=== PATIENT | female | born 1980 | race Caucasian/White ===

== ENCOUNTER → 2017-04-15 | Outpatient (CLI) | payer OTHER ==
--- NOTE | 2017-04-15 21:18 | CT ---
EXAMINATION TYPE: CT abdomen pelvis w con DATE OF EXAM: 04/15/2017 COMPARISON: 10/09/2015 HISTORY: 36-year-old female with low abdominal pain x 2 weeks. TECHNIQUE: Contiguous axial scanning of the abdomen and pelvis following administration of 100 ml Omn ipaque 300 IV contrast. Delayed images through the kidneys and coronal/sagittal reconstructions perf ormed. CT DLP: 1819.00 mGycm Automated exposure control for dose reduction was used. FINDINGS: Heart is normal size without pericardial effusion. Lung bases clear without pleural effusion. Marked hepatomegaly measuring 25 cm craniocaudal with diffuse low-attenuation. Portal venous system i s patent. No biliary ductal dilatation. Gallbladder, adrenal glands, slightly malrotated right kidney, left kidney, and pancreas show no darline s abnormality. Spleen is mildly enlarged at 14.1 cm. No dilated small bowel, free fluid, or free air. A few scattered prominent mesenteric lymph nodes jackie suring up to 1 cm in the mid abdomen are unchanged. Normal appendix. Mild to moderate stool without pericolonic inflammatory change. Bladder is partially urine distended. Uterus and both ovaries are visualized. No abnormal fluid colle ction in the pelvis or pelvic lymphadenopathy seen. There is prior mid abdominal anterior mesh repair. In the right paramedian mid abdomen, there is a ti ny abdominal wall defect measuring 1.2 cm wide as seen previously. There is herniating omental fat th is time estimated to measure 8.2 cm wide, axial image 47. Just below this level, there may be additional anterior abdominal wall mesh repair but there is exten sive soft tissue and some central low density thickening along the anterior subcutaneous fat with dimitrios rounding fat stranding in the subcutaneous fat. There is abnormal thickening measures 5.0 cm wide and 10.7 cm craniocaudal. Previously, this thickening was also present but seem to demonstrate greater d egree of internal fluid density. There is residual mild circumferential wall thickening of the distal 5.5 cm of the terminal ileum. Bones: Redemonstrated bilateral L5 pars defects with grade 1 L5-S1 anterolisthesis and associated deg enerative disc disease at this level. No osseous destructive process. IMPRESSION: 1. PRIOR ANTERIOR ABDOMINAL WALL MESH REPAIR. IN THE RIGHT PARAMEDIAN ANTERIOR MID ABDOMEN, THERE IS REDEMONSTRATION OF A TINY 1.2 CM ABDOMINAL WALL DEFECT. THE HERNIATING OMENTAL FAT SEEMS TO MEASURE 8 .2 CM WIDE, AXIAL IMAGE 47. RELATIVELY SIMILAR TO THE PRIOR EXAM IN RETROSPECT. 2. EXTENSIVE INFLAMMATORY SOFT TISSUE THICKENING CENTERED ALONG THE SUBCUTANEOUS FAT OF THE MID TO LO WER ANTERIOR ABDOMEN SEEN PREVIOUSLY. THERE IS LESS CENTRAL FLUID DENSITY BUT CONTINUED SURROUNDIN G INFLAMMATION. COMBINATION OF CHRONIC SCAR TISSUE AND CHRONIC POSTOPERATIVE HEMATOMA/SEROMA IS POSSI BLE. SUPERIMPOSED INFECTION NOT EXCLUDED GIVEN THE DEGREE OF SURROUNDING FAT STRANDING. 3. REDEMONSTRATED MILD CIRCUMFERENTIAL WALL THICKENING OF THE DISTAL 5.5 CM OF THE TERMINAL ILEUM. CO RRELATE TO EXCLUDE RECURRENT TERMINAL ILEITIS. 4. MARKED HEPATOMEGALY AND HEPATIC STEATOSIS. NEW MILD SPLENOMEGALY (14.1 CM). CLINICALLY CORRELATE. 5. BILATERAL L5 PARS DEFECTS WITH GRADE 1 L5-S1 ANTEROLISTHESIS AND ASSOCIATED DEGENERATIVE DISC DISE ASE.
== END | disposition home or self-care (01) ==
LOC: RADCTMAIN 17:19
PROVIDERS: ATTEND Surgery
DX: K46.9 Unspecified abdominal hernia without obstruction or gangrene (principal); K76.0 Fatty (change of) liver, not elsewhere classified; M79.89 Other specified soft tissue disorders; K31.89 Other diseases of stomach and duodenum; R16.0 Hepatomegaly, not elsewhere classified; R16.1 Splenomegaly, not elsewhere classified
CPT/HCPCS: 74177; Q9967

== ENCOUNTER 2017-09-21 00:57 | Emergency (ER) | payer OTHER ==
--- NOTE | 2017-09-21 01:47 | ED ---
Abdominal Pain HPI - General Chief Complaint: Abdominal Pain Stated Complaint: HYPERTENSION Time Seen by Provider: 09/21/17 01:09 Source: EMS, RN notes reviewed, old records reviewed Mode of arrival: EMS Limitations: altered mental status - History of Present Illness Initial Comments: Patient is a 37-year-old female with history of complaining of abdominal wall irritation and pain. She reports that she afternoon. It's near her previous incision site for her hernia. The area of redness is where her jeans rub. Patient denies any fever chills, nausea or vomiting, teachers about habits. EMS reports that she is now staying home aloneAnd patient has been scared. Patient is legal guardian is your mother, who is contacted and allowed her beat to be treated. EMS also noted that her blood pressure seem to be somewhat elevated. Patient at this time denies any nausea or vomiting, changes in bowel habits. She somewhat of a poor historian. - Related Data Previous Rx's Medication Instructions Recorded Ondansetron Odt [Zofran ODT] 4 mg PO Q8HR PRN #10 tab 08/29/17 Cephalexin [Keflex] 500 mg PO Q8HR #21 cap 09/21/17 Mupirocin 2% Oint [Bactroban 2% 1 applic TOPICAL TID #1 tube 09/21/17 Oint] Nystatin 100,000 Unit/gm Powd 1 applic TOPICAL BID #1 bottle 09/21/17 [Mycostatin Powder] Allergies Allergy/AdvReac Type Severity Reaction Status Date / Time No Known Allergies Allergy Verified 08/29/17 04:55 Review of Systems ROS Statement: Those systems with pertinent positive or pertinent negative responses have been documented in the HPI. ROS Other: All systems not noted in ROS Statement are negative. Past Medical History Past Medical History: No Reported History History of Any Multi-Drug Resistant Organisms: None Reported Past Surgical History: No Surgical Hx Reported Past Psychological History: No Psychological Hx Reported Smoking Status: Never smoker Past Alcohol Use History: None Reported Past Drug Use History: None Reported General Exam - General Exam Comments Initial Comments: 37 year old female. Pt has autism. No distress Limitations: altered mental status General appearance: alert, in no apparent distress Head exam: Present: atraumatic, normocephalic, normal inspection Eye exam: Present: normal appearance, PERRL, EOMI. Absent: scleral icterus, conjunctival injection, periorbital swelling ENT exam: Present: normal exam, mucous membranes moist Neck exam: Present: normal inspection. Absent: tenderness, meningismus, lymphadenopathy Respiratory exam: Present: normal lung sounds bilaterally. Absent: respiratory distress, wheezes, rales, rhonchi, stridor Cardiovascular Exam: Present: regular rate, normal rhythm, normal heart sounds. Absent: systolic murmur, diastolic murmur, rubs, gallop, clicks GI/Abdominal exam: Present: soft, normal bowel sounds, other (area of intertigo under panus. Patient has 3cm area of redness below umbilicus from where her pants rub. 3cm area of cellulitis. ). Absent: distended, tenderness, guarding, rebound, rigid Extremities exam: Present: normal inspection, full ROM, normal capillary refill. Absent: tenderness, pedal edema, joint swelling, calf tenderness Back exam: Present: normal inspection Neurological exam: Present: alert, oriented X3, CN II-XII intact Course Vital Signs 09/21/17 09/21/17 01:01 02:12 Temperature 97.7 F 97.9 F Pulse Rate 92 89 Respiratory 20 18 Rate Blood Pressure 167/93 156/90 O2 Sat by Pulse 96 95 Oximetry Medical Decision Making - Medical Decision Making Can you do [id number]-[id number] female presents with abdominal wall irritation. She has history of autism. Patient has a 3 cm area of cellulitis of her abdomen wear her jeans rub. She also has intertrigo underneath your panties. Discussed all teletypewriter installer for nystatin powder to put underneath her penis. Also some bacitracin cream over the area of redness under umbilicus. She's no tenderness , bowel sounds normal. I will also start the patient on Keflex for the Rich cellulitis at this time. Discussed follow up with her primary care provider. Discussed wearing loose clothing which is not rub over the area. Patient agrees to treatment plan will comply. - Lab Data Lab Results 09/21/17 Range/Units 01:29 Urine Color Yellow Urine Appearance Clear (Clear) Urine pH 5.5 (5.0-8.0) Ur Specific [place] 1.022 (1.001-1.035) Urine Protein Negative (Negative) Urine Glucose (UA) Negative (Negative) Urine Ketones Negative (Negative) Urine Blood Negative (Negative) Urine Nitrite Negative (Negative) Urine Bilirubin Negative (Negative) Urine Urobilinogen <2.0 (<2.0) mg/dL Ur Leukocyte Esterase Trace H (Negative) Urine RBC 1 (0-5) /hpf Urine WBC 4 (0-5) /hpf Ur Squamous Epith Cells 4 (0-4) /hpf Urine Bacteria Rare H (None) /hpf Urine Mucus Few H (None) /hpf Disposition Clinical Impression: Intertrigo, Abdominal wall cellulitis Disposition: ADMITTED IP TO THIS HOSP Condition: Good Instructions: Cellulitis (ED), Skin Yeast Infection (ED) Additional Instructions: Patient advised to apply the powder between skin folds as well as apply the cream over the area of redness on her abdomen. Patient should take the antibiotic as prescribed. Return to emergency department if any alarming signs or symptoms occur. Follow-up with your primary care provider. Prescriptions: Cephalexin [Keflex] 500 mg PO Q8HR #21 cap Mupirocin 2% Oint [Bactroban 2% Oint] 1 applic TOPICAL TID #1 tube Nystatin 100,000 Unit/gm Powd [Mycostatin Powder] 1 applic TOPICAL BID #1 bottle Referrals: Ania Irizarry MD [Primary Care Provider] - 1-2 days Time of Disposition: 01:47
[2017-09-21 01:57] LABS: Appearance,Urine Clear (Clear); Bacteria,Urine Rare /hpf; Bilirubin,Urine Negative (Negative); Glucose,Urine (UA) Negative (Negative); Ketones,Urine Negative (Negative); Leukocyte Esterase,Urine Trace (Negative); Mucus,Urine Few /hpf; Nitrite,Urine Negative (Negative); PH, Urine 5.5 (5.0-8.0); Particle Count 7444; Protein,Urine Negative (Negative); RBC,Urine 1 /hpf (0-5); Specific Gravity,Urine 1.022 (1.001-1.035); Squamous Epithelial Cell,Urine 4 /hpf (0-4); UA Billing (MACRO vs. MICRO) MICRO; Urobilinogen,Urine <2.0 mg/dL (<2.0); WBC,Urine 4 /hpf (0-5)
[2017-09-21 02:13] VITALS: BP 156/90; PULSE 89; RESP 18; TEMP 97.9
== END 2017-09-21 02:14 | disposition other institution (70) ==
LOC: EC 00:57
DX: L03.311 Cellulitis of abdominal wall (principal); L30.4 Erythema intertrigo; R03.0 Elevated blood-pressure reading, without diagnosis of hypertension
CPT/HCPCS: 81001; 99285

== ENCOUNTER → 2017-10-29 | Outpatient (CLI) | payer OTHER ==
--- NOTE | 2017-10-29 11:16 | CT ---
EXAMINATION TYPE: CT abdomen pelvis wo con DATE OF EXAM: 10/29/2017 COMPARISON: 04/15/2017 HISTORY: R10.33 Periumbilical pain SURGICAL HISTORY:Sx hx- Dbl. hernia, Appy, Uracal Cyst., Bladder, and bowel Examination of the solid and hollow viscera is limited given the lack of contrast. Limited unenhanced CT of the abdomen and pelvis. FINDINGS: LUNG BASES: No evidence for nodule. No evidence for infiltrate. LIVER/GB: Hepatomegaly. Underlying hepatic steatosis. The gallbladder is unremarkable. No space-occup zachary hepatic lesion. PANCREAS: No pancreatic mass identified. No inflammatory process seen. SPLEEN: No evidence for splenomegaly. No intrasplenic lesions seen. ADRENALS: No adrenal nodules identified. No evidence for thickening. KIDNEYS: No evidence for renal mass. No nephrolithiasis. No hydronephrosis. BOWEL: Image 69 of 1:15 demonstrates inflammatory change adjacent to the terminal ileum and adjacent small bowel. There appears to be an internal focus of air. Terminal ileum demonstrates a thickened wa ll. The findings are of uncertain etiology and could reflect small contained perforation. Entero-ente ral fistulas difficult to exclude. Consider repeat examination with GI contrast. No evidence for pneumoperitoneum or distinct intra-abdominal abscess. Lymph nodes: No evidence for ad enopathy greater than 1 cm. Abdominal aorta: Atheromatous changes seen. No evidence for aneurysm. Genital organs: No significant abnormality. Osseous structures: Severe degenerative disc disease L5-S1 with grade 1 anterolisthesis and bilateral pars defect. Other: Previous anterior abdominal wall hernia repair. Again noted is right paramedian anterior wall defect measuring 1.5 cm versus 1.2 cm. There is herniated omental fat which measures 9.6 x 3.5 cm and is slightly increased in size relative to prior study. Just caudal to this herniated omental fat the re is thickening of the anterior abdominal wall at its midline into the right of midline with suspect ed postoperative granulation tissue and postoperative seroma/hematoma. Overall measurement is approxi mately 11.7 by 7.8 x 2.3 cm. Size has increased relative to the prior measurement of 10.7 x 5.0 cm. IMPRESSION: 1. Right lower quadrant inflammatory phlegmon adjacent to thickened terminal ileum and several cluste red loops of small bowel. As noted within this area of phlegmon there appears to be a focus of air. T he findings could reflect a contained perforation. Entero-enteral fistula is not excluded. Strict cli nical correlation is advised as well as correlation with repeat examination with GI contrast. 2. Anterior abdominal wall hernia which demonstrates interval enlargement and contains omental fat. 3. Postoperative granulation tissue and seroma anterior abdominal wall hernia repair site. 4 hepatomegaly with hepatic steatosis.
== END | disposition home or self-care (01) ==
LOC: RADCTMAIN 09:36
PROVIDERS: ATTEND Surgery
DX: K65.1 Peritoneal abscess (principal); K43.9 Ventral hernia without obstruction or gangrene; K76.0 Fatty (change of) liver, not elsewhere classified; R16.0 Hepatomegaly, not elsewhere classified; K91.872 Postprocedural seroma of a digestive system organ or structure following a digestive system procedure; Z98.890 Other specified postprocedural states
CPT/HCPCS: 74176

== ENCOUNTER → 2021-06-03 | Outpatient (CLI) | payer MEDICARE, OTHER ==
--- NOTE | 2021-06-03 16:26 | CT ---
EXAMINATION TYPE: CT abdomen pelvis wo con DATE OF EXAM: 06/03/2021 HISTORY: Periumbilical pain, history of incisional hernia. CT DLP: 347.6 mGycm. Automated Exposure Control for Dose Reduction was Utilized. TECHNIQUE: CT scan of the abdomen and pelvis is performed without oral or IV contrast. COMPARISON: CT abdomen and pelvis October 29, 2017 and older CTs FINDINGS: Within the limitations of a non-contrast study, the following observations are made. LUNG BASES: No significant abnormality is appreciated. LIVER/GB: Improvement density to the liver. PANCREAS: No significant abnormality is seen. SPLEEN: No significant abnormality is seen. ADRENALS: No significant abnormality is seen. KIDNEYS: No renal stones or hydronephrosis seen bilaterally. BOWEL: Suboptimal evaluation without enteric contrast. No suspicious small or large bowel dilatation. A few sigmoid colonic diverticula are present without CT evidence for acute diverticulitis. GENITAL ORGANS: Lnhyq-[id number]-[id number] amount of free fluid in pelvic cul-de-sac axial image 71. LYMPH NODES: No greater than 1cm abdominal or pelvic lymph nodes are appreciated. OSSEOUS STRUCTURES: Bilateral pars defect L5 level. Grade 1 anterolisthesis L5 on S1. Moderate disc s pace narrowing at this level. OTHER: Vertical scarring along the midline of the anterior abdominal wall is redemonstrated. Small fo lance areas of fluid density reference axial image 53 are identified, suspected postsurgical seroma. Th ere is narrow neck hernia defect axial image 47 redemonstrated. Right inferior fat-containing ventral wall hernia extension coronal image 13 again seen. Irregular linear density, suspected scar tissue i n the anterior abdominal wall is again seen. IMPRESSION: Extensive surgical change anterior abdominal wall redemonstrated. Persistent narrow neck ventral wall hernia defect. Small areas of fluid density favoring seromas in the hernia defect and sc ar tissue. New moderate amount of free fluid in pelvic cul-de-sac is nonspecific.
== END | disposition home or self-care (01) ==
LOC: RADCTMAIN 15:54
PROVIDERS: ATTEND Surgery
DX: K43.2 Incisional hernia without obstruction or gangrene (principal); R10.33 Periumbilical pain
CPT/HCPCS: 74176

== ENCOUNTER 2021-09-20 15:11 | Emergency (ER) | payer MEDICARE, OTHER ==
[2021-09-20 17:29] LABS: HCT 32.5 % (34.0-46.0); HGB 10.9 gm/dL (11.4-16.0); MCH 32.4 pg (25.0-35.0); MCHC 33.4 g/dL (31.0-37.0); MCV 96.9 fL (80.0-100.0); Mean Platelet Volume 6.6; Platelet Count 494 k/uL (150-450); RBC 3.35 m/uL (3.80-5.40); RDW 14.1 % (11.5-15.5); WBC 12.2 k/uL (3.8-10.6)
[2021-09-20 17:38] LABS: ALT 42 U/L (4-34); AST 29 U/L (14-36); African American GFR (CKD) >90 (>60 ml/min/1.73 sqM); Albumin 4.1 g/dL (3.5-5.0); Alkaline Phosphatase 91 U/L (38-126); Anion Gap 8 mmol/L; Blood Urea Nitrogen 12 mg/dL (7-17); Calcium 8.9 mg/dL (8.4-10.2); Carbon Dioxide 32 mmol/L (22-30); Chloride 96 mmol/L (98-107); Glucose 95 mg/dL (74-99); Non-African American GFR(CKD) >90 (>60 ml/min/1.73 sqM); Sodium 136 mmol/L (137-145); Total Bilirubin 0.9 mg/dL (0.2-1.3); Total Protein 7.4 g/dL (6.3-8.2)
[2021-09-21] MEDS ORDERED: GELATIN SPONGE,ABSORB (SMALL) 1 EACH SPONGE TOPICAL STA (00:37)
--- NOTE | 2021-09-21 01:09 | ED ---
General Adult HPI - General Chief complaint: Wound/Laceration Stated complaint: Abd bleeding/post surg Time Seen by Provider: 09/21/21 00:12 Source: patient Mode of arrival: wheelchair Limitations: no limitations - History of Present Illness Initial comments: 41-year-old female with a past medical history of autism presents to the emergency room for a chief complaint of bleeding incision. Patient states that she had a hernia repair done on September 06. She states that today it started bleeding a little bit from between the oliver. Patient has an appointment with her surgeon later this morning to evacuate hematoma in the area. However caregiver states they couldn't get it to stop bleeding so decided to come here first.Patient has no other complaints at this time including shortness of breath, chest pain, abdominal pain, nausea or vomiting, headache, or visual changes. - Related Data Previous Rx's Medication Instructions Recorded Ondansetron Odt [Zofran ODT] 4 mg PO Q8HR PRN #10 tab 08/29/17 Cephalexin [Keflex] 500 mg PO Q8HR #21 cap 09/21/17 Mupirocin 2% Oint [Bactroban 2% 1 applic TOPICAL TID #1 tube 09/21/17 Oint] Nystatin 100,000 Unit/gm Powd 1 applic TOPICAL BID #1 bottle 09/21/17 [Mycostatin Powder] Allergies Allergy/AdvReac Type Severity Reaction Status Date / Time No Known Allergies Allergy Verified 09/20/21 16:40 Review of Systems ROS Statement: Those systems with pertinent positive or pertinent negative responses have been documented in the HPI. ROS Other: All systems not noted in ROS Statement are negative. Past Medical History Past Medical History: No Reported History Additional Past Medical History / Comment(s): autistic History of Any Multi-Drug Resistant Organisms: None Reported Past Surgical History: Bladder Surgery, Hernia Repair Past Psychological History: No Psychological Hx Reported Smoking Status: Never smoker Past Alcohol Use History: None Reported Past Drug Use History: None Reported General Exam Limitations: no limitations General appearance: alert, in no apparent distress Head exam: Present: atraumatic Eye exam: Present: normal appearance, PERRL, EOMI. Absent: scleral icterus, conjunctival injection ENT exam: Present: normal exam, mucous membranes moist Neck exam: Present: normal inspection, full ROM. Absent: tenderness Respiratory exam: Present: normal lung sounds bilaterally. Absent: respiratory distress, wheezes Cardiovascular Exam: Present: regular rate, normal rhythm, normal heart sounds GI/Abdominal exam: Present: soft, other (Patient has a small less than 1 mm area has slight bleeding noted, however mostly controlled.). Absent: distended, tenderness Course Vital Signs 09/20/21 12 16:37 01:37 Temperature 98 F 98.1 F Pulse Rate 98 88 Respiratory 16 18 Rate Blood Pressure 114/77 116/76 O2 Sat by Pulse 100 98 Oximetry Medical Decision Making - Medical Decision Making Gelfoam and gauze was applied to the area. Bleeding has resolved. Patient has an appointment in a few hours with her surgeon to evacuate the hematoma and this should help with the bleeding. Patient will be discharged to follow-up at her appointment and will return here for any worsening symptoms. - Lab Data Result diagrams: 09/20/21 17:21 09/20/21 17:21 Lab Results 09/20/21 09/20/21 Range/Units 17:21 17:21 WBC 12.2 H (3.8-10.6) k/uL RBC 3.35 L (3.80-5.40) m/uL Hgb 10.9 L (11.4-16.0) gm/dL Hct 32.5 L (34.0-46.0) % MCV 96.9 (80.0-100.0) fL MCH 32.4 (25.0-35.0) pg MCHC 33.4 (31.0-37.0) g/dL RDW 14.1 (11.5-15.5) % Plt Count 494 H (150-450) k/uL MPV 6.6 Sodium 136 L (137-145) mmol/L Potassium 4.0 (3.5-5.1) mmol/L Chloride 96 L (98-107) mmol/L Carbon Dioxide 32 H (22-30) mmol/L Anion Gap 8 mmol/L BUN 12 (7-17) mg/dL Creatinine 0.74 (0.52-1.04) mg/dL Est GFR (CKD-EPI)AfAm >90 (>60 ml/min/1.73 sqM) Est GFR (CKD-EPI)NonAf >90 (>60 ml/min/1.73 sqM) Glucose 95 (74-99) mg/dL Calcium 8.9 (8.4-10.2) mg/dL Total Bilirubin 0.9 (0.2-1.3) mg/dL AST 29 (14-36) U/L ALT 42 H (4-34) U/L Alkaline Phosphatase 91 (38-126) U/L Total Protein 7.4 (6.3-8.2) g/dL Albumin 4.1 (3.5-5.0) g/dL Disposition Clinical Impression: Wound dehiscence Disposition: HOME SELF-CARE Condition: Good Instructions (If sedation given, give patient instructions): Wound Dehiscence (ED) Additional Instructions: Please attend your appointment in the morning. Return to the emergency room for any worsening symptoms. Is patient prescribed a controlled substance at d/c from ED?: No Referrals: Ania Irizarry MD [Primary Care Provider] - 1-2 days Time of Disposition: 01:09
[2021-09-21 01:38] VITALS: BP 116/76; PULSE 88; RESP 18; TEMP 98.1
== END 2021-09-21 01:37 | disposition home or self-care (01) ==
LOC: EC 15:11 → EEVIPCON 15:11 → EC 09-21 01:37
DX: T81.30XA Disruption of wound, unspecified, initial encounter (principal); Z98.890 Other specified postprocedural states
CPT/HCPCS: 36415; 80053; 85027; 99283

== ENCOUNTER → 2024-12-19 | Outpatient (CLI) | payer MEDICARE, OTHER ==
--- NOTE | 2024-12-19 15:01 | US ---
EXAMINATION TYPE: US bladder DATE OF EXAM: 12/19/2024 COMPARISON: NONE CLINICAL INDICATION: Female, 44 years old with history of N39.490 OVERFLOW INCONTINENCE; Pt states co nstant need to urinate TECHNIQUE: Grayscale and color doppler imaging of the bilateral kidneys and urinary bladder. FINDINGS: EXAM MEASUREMENTS: Pre Void Volume: 158.7 mL Post Void Residual Volume: 22.2 mL AT RISK PARAPROFESSIONAL NOTES: Color Doppler performed to assess ureteral jets. Bilateral Jets seen: Yes Normal Post Void Residual (less than 50ml): Yes IMPRESSION: Postvoid residual is within normal limits. [facility], , 12/19/2024 2:59 PM
== END | disposition home or self-care (01) ==
LOC: RADUSWWP 14:14 → EEVIPCON 14:30
PROVIDERS: ATTEND Family Medicine
DX: N39.490 Overflow incontinence (principal); R39.198 Other difficulties with micturition
CPT/HCPCS: 76857